=== PATIENT | male | born 1940 | race Caucasian/White ===

== ENCOUNTER 2017-05-02 09:58 | Inpatient (IN) | payer MEDICARE, MEDICAID ==
[~2017-05-02] VITALS: Ht 175.3 cm; Wt 45.5 kg
[~2017-05-02 09:58] MED LIST: /THIA10TA OR; /TIOT18INH INH; ACET1TAB17 PO; ACET65TA OR; ADV250INH INH; ALBU83IN INH; AMBI5TAB OR; ASPI325T OR; ATIV0.5T IV; CEFT2ADD IV; CELE20TA PO; COLA100C2 OR; DOCU10CA PO; FERR1TAB8 PO; FLEEENE4 PR; FOLI1TAB OR; HEPARIN LOCK FLUSH IV; LEVA750T7 PO; LOPR50TA OR; MAGN500T2 OR; MILKSUS OR; MORPHINE SULFATE IV; NEUTSOL PO; NICO21PAT TD; No Historical Meds; PRED10TA PO; PROAAER10 INH; SODIUM CL 0.9% IV; SPIR1CAP INH; TUMS500C OR; Theragran PO; XOPE1.252 IN
[2017-05-02] MEDS ORDERED: NS 1,000 ML IV SCH (10:11)
[2017-05-02] MEDS ORDERED: SYMB80INH INH (10:12)
[2017-05-02 10:44] LABS: BASO % 0.4 % (0.0-1.0); EOS % 0.4 % (0.0-3.0); IMMATURE GRANULOCYTE % 0.5 % (0-0); LYMPH % 9.5 % (24.0-44.0); MEAN CORPUSCULAR HEMOGLOBIN 20.1 pg (27.0-33.0); MONO # 1.2 10^3/uL (0.0-0.8); MONO % 11.8 % (0.0-5.0); NEUTROPHILS # 7.8 10^3/uL (1.8-7.7); NEUTROPHILS % 77.4 % (36.0-66.0); PLATELET COUNT, AUTOMATED 598 10^3/uL (150-450); RED CELL DISTRIBUTION WIDTH 19.9 % (11.5-14.5); WHITE BLOOD COUNT 10.1 10^3/uL (4.0-10.0)
[2017-05-02 10:45] LABS: VENOUS BASE EXCESS 2.8 (-2.0-2.0); VENOUS O2 SATURATION 41.8 % (60.0-80.0); VENOUS PARTIAL PRESSURE CO2 51.9 mmHg (38.0-50.0); VENOUS PARTIAL PRESSURE O2 26.6 mmHg (30.0-50.0); VENOUS STANDARD HCO3 26.1 MEQ/L; VENOUS TOTAL CO2 30.4 MEQ/L (24.0-28.0)
[2017-05-02 10:46] LABS: ADD MORPHOLOGY? YES; MEAN CORPUSCULAR VOLUME 71.7 fl (80.0-96.0)
[2017-05-02 10:57] LABS: INR 1.19
--- NOTE | 2017-05-02 10:59 | REP ---
PORTABLE CHEST, TWO VIEWS: HISTORY: Cough. COMPARISON: 04/21/2015 The lungs are hyperinflated. An increase in interstitial markings is present in the lungs. A 7.9 cm mass is present in the right upper lobe. The mass is increased in size compared to the previous study. The heart is normal in size. The pulmonary vasculature is normal in appearance. IMPRESSION: 1. COPD. 2. Right upper lobe mass Increased in size compared to the previous study. Signed by Ryan Burrows MD 05/02/2017 11:09 A
--- NOTE | 2017-05-02 11:11 | REP ---
Right lower extremity deep vein duplex ultrasound: The deep veins demonstrate normal compression, normal Doppler color flow and normal Doppler waveforms with respiration augmentation at multiple levels. Impression: There is no right lower extremity deep vein thrombus. Signed by Yazan Pham MD 05/02/2017 11:02 A
[2017-05-02 11:17] LABS: ALBUMIN 1.7 GM/DL (3.2-5.2); ALBUMIN/GLOBULIN RATIO 0.23 (1.00-1.93); ALKALINE PHOSPHATASE 108 U/L (45-117); ALT/SGPT 22 U/L (12-78); ANION GAP 6 MEQ/L (8-16); AST/SGOT 14 U/L (15-37); BILIRUBIN,DIRECT < 0.1 MG/DL (0.0-0.2); BILIRUBIN,TOTAL 0.3 MG/DL (0.2-1.0); BLOOD UREA NITROGEN 11 MG/DL (7-18); CALCIUM LEVEL 9.8 MG/DL (8.8-10.2); CARBON DIOXIDE LEVEL 30 MEQ/L (21-32); CHLORIDE LEVEL 95 MEQ/L (98-107); CREATININE FOR GFR 0.53 MG/DL (0.70-1.30); GLOMERULAR FILTRATION RATE > 60.0 (>42); GLUCOSE, FASTING 105 MG/DL (83-110); POTASSIUM SERUM 3.7 MEQ/L (3.5-5.1); SODIUM LEVEL 131 MEQ/L (136-145); TOTAL PROTEIN 9.1 GM/DL (6.4-8.2)
[2017-05-02 11:19] LABS: ANISOCYTOSIS 2+; MICROCYTOSIS 2+
[2017-05-02] MEDS ORDERED: ISOVUE-370 76% 100ML VIAL (Q9967) As Ordered ONE (12:35)
--- NOTE | 2017-05-02 13:20 | REP ---
CT pulmonary angiogram: With IV contrast. History: Cancer, shortness of breath, question pulmonary embolus. Comparison study: April 17, 2015. Contrast dose: 100 cc's of Isovue [address] technique: Helical scanning is acquired and overlapping 1.5 mm and contiguous 3 mm axial images are reformatted. In addition, a 3-D work station is deployed to generate thick slab maximum intensity projection images in sagittal and coronal imaging projections. CT pulmonary angiographic findings: There is good opacification of the pulmonary arterial tree. There is no CT evidence of pulmonary embolism. The thoracic aorta enhances homogeneously and is normal in caliber and contour. No aneurysm or dissection is seen. Left coronary artery vascular calcification is seen. The lungs are markedly hyperinflated. There is a large right suprahilar upper lobe mass with some peripheral consolidation. This mass-like opacity occludes the upper lobe bronchus and measures approximately 7 cm medial to lateral by 6.5 cm anterior to posterior by 7.5 cm cranial to caudal. Above the lesion there is some inspissated endobronchial secretions and some apical pleuroparenchymal fibrosis. Advanced emphysematous changes are seen throughout the lungs bilaterally. On the left in the upper lobe there is chronic fibroatelectatic change. There is a cavity in the left lung apex. This contains a nearly spherical slightly irregular density within the otherwise air-filled cavity. The density measures 1.5 cm in diameter. Possibility of a fungus ball cannot be excluded. There are scattered subpleural fibrotic densities in the lower lobes bilaterally, left more so than right. No other pulmonary mass lesion is seen. No adrenal lesion is observed. Bone window settings show no bony destructive lesion. Impression: 1. No CT evidence of pulmonary embolus. 2. 7.5 cm right suprahilar and upper lobe mass lesion likely bronchogenic malignancy. Right superior hilar adenopathy suspected. Obstruction of the right upper lobe bronchus. 3. 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 4. Advanced COPD with scattered fibronodular changes. Signed by Bienvenido Vegas MD 05/02/2017 05:10 P
--- NOTE | 2017-05-02 13:53 | REP ---
CT abdomen pelvis with IV but without oral contrast: History: Shortness of breath question pulmonary embolus. History of cancer. CT findings: There is mild fatty infiltration of the liver. No definite liver mass is seen. The patient is extremely thin and there is very little intra-abdominal or extra-abdominal fat. The kidneys enhance symmetrically and are morphologically intact. The right adrenal gland is normal. The left adrenal gland is somewhat enlarged but unchanged from the [address] study consistent with an adenoma. No pancreatic mass lesion is observed. No retroperitoneal mass or adenopathy is observed. Heavy atherosclerotic irregularity and calcification are seen along the abdominal aorta and its branches. No aneurysm is seen. A fecal impaction pattern is seen with marked dilation of the formed stool filled rectum. This fills the pelvis, 9.8 cm in transverse dimension. No small bowel dilation is seen. No abdominal wall defect or bony destructive lesion is appreciated. Impression: 1. Stable enlargement left adrenal gland consistent with benign adenoma. No evidence of intra-abdominal metastatic disease. 2. Fecal impaction constipation pattern. 3. No other acute intra-abdominal finding. Signed by Bienvenido Vegas MD 05/02/2017 05:11 P
[2017-05-02] MEDS ORDERED: TYLE325T5 PO (14:16)
[2017-05-02] MEDS ORDERED: MORP15TA2 PO (14:16)
[2017-05-02] MEDS ORDERED: ACETAMINOPHEN TAB 650MG DOSE (2X325MG) PO PRN (14:30)
[2017-05-02] MEDS ORDERED: IPRATROPIUM 0.5MG/ALBUTEROL 2.5MG INH SOL UD 3ML (DUONEB)(J7620) NEB PRN (14:45)
--- NOTE | 2017-05-02 14:51 | HPEPDOC ---
General Date of Admission May 02, 2017 at 14:20 Chief Complaint The patient is a 76-year-old male Presented to the ER with complaints of shortness of breath for >3 weeks. History of Present Illness Patient is a 76 year old male who is homeless and [facility]. He has a PMHx of Lung CA (Dx 2.5 years ago, refused biopsy / chemotherapy and radiation), COPD and Hx of GI bleed who presented to the ER with complaints of shortness of breath. He notes that he is always short of breath and has periods where it has been better without intervention. He ntoes that over 3 weeks his breathing has worsened. He also notes that he has a productive cough and at times has coughed up brownish colored sputum. He denies any fever or chills outside the hospital. He denies chest pain or palpitations. He notes that he gets constipated occasionally, but he denies any abdominal pain , nausea or vomiting. Denies dysuria. He also notes a weight loss of >50 lbs in 3 months. Home Medications Scheduled Albuterol Sulfate (Albuterol Sulfate) 2.5 Mg/3 Ml Nebu, 2.5 MG INH QID, ( Reported) Budesonide/Formoterol (Symbicort 80-4.5 Mcg/Act) 60 Puff/Inhaler Aers, 2 PUFF INH BID, (Reported) Morphine Sulfate (Morphine Sulfate) 15 Mg Tab, 15 MG PO TID, (Reported) Scheduled PRN Acetaminophen (Tylenol) 325 Mg Tab, 325 MG PO Q4H PRN for PAIN, (Reported) Allergies Coded Allergies: Vancomycin (Verified Allergy, Intermediate, HIVES, 10/20/12) Past Medical History Medical History Lung CA (Dx 2.5 years ago, refused biopsy / chemotherapy and radiation), COPD and Hx of GI bleed Surgical History None reported Family History - Non-contributory given advanced age Social History - Denies the use of alcohol or illicit drugs; Smoker since life at >1 PPD - Denies recent travel or sick contacts - [facility] - Occupation; unemployed Review of Symptoms Other systems Negative otherwise stated in HPI Vital Signs - Vitals: BP 104/59, HR 90, RR 22, Sat 91%RA, Temp 97.9F - General: Lying in bed, No acute distress, Speaking in full sentences, AAOx3, Appears cachectic - HEENT: NC, AT, PERRLA, EOMI - CVS: RRR, +S1S2 - Lungs: Diminished lung sounds bilaterally, wheezing appreciated at bilateral lung russo - Abdomen: Soft, Non-distended, Non-tender - Extremities: 2+ pitting edema bilaterally, No calf tenderness - Neuro: No focal motor or sensory deficit - Skin: No visible rashes Laboratory Data Labs 24H Laboratory Tests 2 05/02/17 10:31: Immature Granulocyte % (Auto) 0.5H, White Blood Count 10.1H, Red Blood Count 3.64L, Hemoglobin 7.3L, Hematocrit 26.1L, Mean Corpuscular Volume 71.7L, Mean Corpuscular Hemoglobin 20.1L, Mean Corpuscular Hemoglobin Concent 28.0L, Red Cell Distribution Width 19.9H, Platelet Count 598H, Neutrophils (%) (Auto) 77.4H , Lymphocytes (%) (Auto) 9.5L, Monocytes (%) (Auto) 11.8H, Eosinophils (%) (Auto ) 0.4, Basophils (%) (Auto) 0.4, Neutrophils # (Auto) 7.8H, Lymphocytes # (Auto ) 1.0L, Monocytes # (Auto) 1.2H, Eosinophils # (Auto) 0.0, Basophils # (Auto) 0.0, Immature Granulocyte # (Auto) 0.1H, Nucleated Red Blood Cells % (auto) 0.0 , Platelet Estimate INCREASED, Anisocytosis 2+, Microcytosis 2+, Prothrombin Time 15.3H, Prothromb Time International Ratio 1.19, Blood Gas Bicarbonate Standard 26.1, Venous Blood pH 7.362, Venous Blood Partial Pressure CO2 51.9H, Venous Blood Partial Pressure O2 26.6L, Venous Blood Total Carbon Dioxide 30.4H , Venous Blood HCO3 28.8H, Venous Blood Oxygen Saturation 41.8L, Venous Blood Base Excess 2.8H, Anion Gap 6L, Glomerular Filtration Rate > 60.0, Lactic Acid Level 1.7, Calcium Level 9.8, Aspartate Amino Transf (AST/SGOT) 14L, Alanine Aminotransferase (ALT/SGPT) 22, Alkaline Phosphatase 108, Total Bilirubin 0.3, Direct Bilirubin < 0.1, Total Creatine Kinase 27L, Creatine Kinase MB 1.6, Creatine Kinase MB Relative Index 5.92H, Troponin I < 0.02, Total Protein 9.1H, Albumin 1.7L, Albumin/Globulin Ratio 0.23L, Thyroid Stimulating Hormone (TSH) 1.810 05/02/17 12:34: Urine Appearance HAZY, Urine Color YELLOW, Urine pH 6.0, Urine Specific [place] 1.010, Urine Protein NEGATIVE, Urine Glucose (UA) NEGATIVE, Urine Ketones NEGATIVE, Urine Urobilinogen 4.0H, Urine Bilirubin NEGATIVE, Urine Leukocyte Esterase NEGATIVE, Urine Blood NEGATIVE, Urine Nitrite NEGATIVE, Urine WBC (Auto ) 2, Urine RBC (Auto) 3, Urine Hyaline Casts (Auto) 0, Urine Bacteria (Auto) NEGATIVE, Urine Squamous Epithelial Cells 0, Urine Amorphous Sediment SMALLH, Urine Mucus (Auto) SMALL, Urine Sperm (Auto) CBC/BMP Laboratory Tests 05/02/17 10:31 Red Blood Count 3.64 L, Mean Corpuscular Volume 71.7 L, Mean Corpuscular Hemoglobin 20.1 L, Mean Corpuscular Hemoglobin Concent 28.0 L, Red Cell Distribution Width 19.9 H, Neutrophils (%) (Auto) 77.4 H, Lymphocytes (%) (Auto ) 9.5 L, Monocytes (%) (Auto) 11.8 H, Eosinophils (%) (Auto) 0.4, Basophils (%) (Auto) 0.4, Neutrophils # (Auto) 7.8 H, Lymphocytes # (Auto) 1.0 L, Monocytes # (Auto) 1.2 H, Eosinophils # (Auto) 0.0, Basophils # (Auto) 0.0 Microbiology Microbiology 05/02/17 Blood Culture, Received Pending 05/02/17 Blood Culture, Received Pending Plan / VTE VTE Prophylaxis Ordered?: Yes Plan Plan Shortness of breath - possibly 2/2 multifactorial etiology, 2/2 acute COPD exacerbation, possibly 2/2 symptomatic anemia, possibly 2/2 lung cancer, possibly 2/2 congestive heart failure - Presented with worsening shortness of breath over 3 weeks, associated with productive cough - Physical with wheezing at bilateral lung russo and LE edema - Labs reveal anemia at 7.3 (Microcytic) - ABG reveals mild pCO2 retention, but no change in PH - Patient is DNR / DNI and does not want intubation - CTA 05/02: No pulmonary embolism, 7.5 cm R suprahilar and upper lobe mass lesion (likely bronchogenic malignancy), obstruction in R upper lobe bronchus, chronic fibroatelectasis in JOSEE with possible fungus ball in cavitary lesion at apex on left, advanced COPD - Patient is refusing bronchoscopy - Will consult Dr. Escamilla - Will start Solumedrol, Duoneb and Transfuse 2 units PRBC Microcytic anemia / Symptomatic anemia - Hg of 7.3 - Baseline of 10 from 11/2015 - Will check iron panel, B12, folate, and reticulocyte count - Will transfuse 2 units of PRBC Mild leukocytosis - Patient notes a productive cough - No fevers - Differential appears mostly neutrophil predominant - UA negative - CXR without acute infiltrate; CTA with possible fibroatelectasis in JOSEE with possible fungus ball in apex - Will check blood cultures and sputum cultures - Will discuss with Dr. Escamilla Thrombocytosis likely reactive, possibly 2/2 iron deficiency anemia - will monitor for now Likely lung malignancy - Dx 2.5 years ago - Patient had refused biopsy at that time and did not want chemotherapy or radiation - Again patient has refused bronchoscopy COPD - see above Hx of GI bleed - Will check stool guiac Gastrointestinal prophylaxis - Will start Protonix DVT prophylaxis - Will start SCDs SUZANNE HOWELL MD May 02, 2017 14:51
[2017-05-02] MEDS ORDERED: MIRALAX *UNIT DOSE* 17GM PACKET PO PRN (15:00)
[2017-05-02] MEDS: PANTOPRAZOLE 40MG INJ (PROTONIX) (C9113) IV SCH (15:06)
[2017-05-02] MEDS: methylPREDNISolone INJ 125 MG/2 ML VIAL (J2930) IV SCH ×2 (15:06→22:57)
[2017-05-02] MEDS ORDERED: FLEET OIL RETENTION ENEMA PR ONE (15:15)
[2017-05-02 15:19] LABS: RETIC HEMOGLOBIN EQUIVALENT 21.1 pg (24-36); RETICULOCYTE % 2.8 % (0.5-1.5)
[2017-05-02 16:04] LABS: PERCENT SATURATION 8.1 % (19.7-50.0)
[2017-05-02 16:07] LABS: FOLATE 7.6 NG/ML (>5.4)
[2017-05-02] MEDS: MORPHINE 30 MG TAB **MSIR PO SCH ×2 (18:39→21:00)
[2017-05-02 18:57] LABS: MEAN CORPUSCULAR HEMOGLOBIN 21.4 pg (27.0-33.0); MEAN CORPUSCULAR HGB CONC 29.2 g/dl (32.0-36.5); PLATELET COUNT, AUTOMATED 551 10^3/uL (150-450); WHITE BLOOD COUNT 8.3 10^3/uL (4.0-10.0)
[2017-05-02 19:05] LABS: ADD MANUAL DIFFER YES; DIFF SLIDE NUMBER 314; MEAN CORPUSCULAR VOLUME 73.4 fl (80.0-96.0); RED CELL DISTRIBUTION WIDTH 21.8 % (11.5-14.5)
[2017-05-02 19:40] LABS: ANISOCYTOSIS 2+; HYPOCHROMASIA 1+; MICROCYTOSIS 2+; POLYCHROMASIA 1+
[2017-05-02] MEDS: IPRATROPIUM 0.5MG/ALBUTEROL 2.5MG INH SOL UD 3ML (DUONEB)(J7620) NEB SCH (20:00)
[2017-05-02] MEDS: SYMBICORT 80/4.5MCG INHALER 6GM INH SCH (20:14)
[2017-05-02] MEDS: SENOKOT S TAB PO SCH (21:00)
[2017-05-02 22:00] VITALS: BP 94/64
[2017-05-03] VITALS: BP 105/61
[2017-05-03] MEDS: IPRATROPIUM 0.5MG/ALBUTEROL 2.5MG INH SOL UD 3ML (DUONEB)(J7620) NEB SCH ×3 (03:05→13:20)
[2017-05-03 04:00] VITALS: BP 107/70
[2017-05-03 06:07] LABS: IMMATURE GRANULOCYTE % 0.3 % (0-0); LYMPH # 0.5 10^3/uL (1.5-4.5); LYMPH % 7.5 % (24.0-44.0); MEAN CORPUSCULAR HGB CONC 29.6 g/dl (32.0-36.5); MONO # 0.3 10^3/uL (0.0-0.8); MONO % 4.7 % (0.0-5.0); NEUTROPHILS # 5.6 10^3/uL (1.8-7.7); NEUTROPHILS % 87.5 % (36.0-66.0); PLATELET COUNT, AUTOMATED 499 10^3/uL (150-450); WHITE BLOOD COUNT 6.4 10^3/uL (4.0-10.0)
[2017-05-03 06:13] LABS: ADD MORPHOLOGY? YES; MEAN CORPUSCULAR VOLUME 74.1 fl (80.0-96.0); RED CELL DISTRIBUTION WIDTH 21.2 % (11.5-14.5)
[2017-05-03 06:15] LABS: ALBUMIN 1.4 GM/DL (3.2-5.2); ALBUMIN/GLOBULIN RATIO 0.22 (1.00-1.93); ALKALINE PHOSPHATASE 88 U/L (45-117); ALT/SGPT 14 U/L (12-78); ANION GAP 8 MEQ/L (8-16); AST/SGOT 13 U/L (15-37); BILIRUBIN,TOTAL 0.5 MG/DL (0.2-1.0); BLOOD UREA NITROGEN 11 MG/DL (7-18); CALCIUM LEVEL 9.2 MG/DL (8.8-10.2); CARBON DIOXIDE LEVEL 28 MEQ/L (21-32); CHLORIDE LEVEL 100 MEQ/L (98-107); GLOMERULAR FILTRATION RATE > 60.0 (>42); GLUCOSE, FASTING 122 MG/DL (83-110); MAGNESIUM LEVEL 2.4 MG/DL (1.8-2.4); POTASSIUM SERUM 3.9 MEQ/L (3.5-5.1); SODIUM LEVEL 136 MEQ/L (136-145); TOTAL PROTEIN 7.7 GM/DL (6.4-8.2)
[2017-05-03] MEDS: methylPREDNISolone INJ 125 MG/2 ML VIAL (J2930) IV SCH ×3 (06:53→22:26)
[2017-05-03 07:11] LABS: ANISOCYTOSIS 3+; HYPOCHROMASIA 2+; MICROCYTOSIS 2+
[2017-05-03 07:12] LABS: POLYCHROMASIA 1+; STOMATOCYTES 1+
[2017-05-03] MEDS: SYMBICORT 80/4.5MCG INHALER 6GM INH SCH ×2 (07:36→21:11)
--- NOTE | 2017-05-03 07:39 | ECGEPIP ---
Stationary ECG Study [facility] - ED Test Date: 2017-05-02 Pat Name: LEBRON PALOMINO Department: Room: - Gender: M [employer]: AF : 1940 Requested By: Cyndy Mobley Order Number: [id number] Reading MD: Cyndy Mobley Measurements Intervals [place] Rate: 85 P: 87 [place]: 128 QRS: 87 QRSD: 103 T: 83 QT: 359 QTc: 429 Interpretive Statements SINUS RHYTHM WITH MARKED SINUS ARRHYTHMIA NSTTW ABNORMALITY BASELINE ARTIFACT LIMITS INTERPRETATION Electronically Signed On 05-03-2017 7:38:47 EDT by Cyndy Mobley
--- NOTE | 2017-05-03 07:57 | IPNPDOC ---
Date Seen The patient was seen on 05/03/17. Progress Note SUBJECTIVE: Patient is a 76 yo male admitted last evening for acute blood loss anemia. Transfused 2units of PRBCs. Currently no complaints of CP, SOB, n/v/d. Denies abdominal pain, hematochezia or melena. OBJECTIVE PHYSICAL EXAMINATION: VITAL SIGNS: Please see below. GENERAL: NAD HEENT: PERRLA, throat clear, neck supple, no JVD CARDIOVASCULAR: RRR. RESPIRATORY: expiratory wheeze throughout all lung russo. ABDOMINAL: soft NT/ND, Normoactive bowelsounds, no rebound EXTREMITIES: 1-2+ edema no calf tenderness NEUROLOGICAL: CN II-XII grossly intact, no gross deficits PSYCHOLOGICAL: negative LABORATORY DATA: Please see below. MICROBIOLOGY: Please see below. Echocardiogram: PENDING. DVT prophylaxis ordered?: yes ASSESSMENT AND PLAN: This is a 76 yo male admitted for sob and symptomatic anemia. No issues reported overnight. PROBLEMS: 1. Shortness of breath - possibly 2/2 multifactorial etiology: (2/2 acute COPD exacerbation, possibly 2/2 symptomatic anemia, possibly 2/2 lung cancer, possibly 2/2 congestive heart failure) -Transfused 2 units PRBC last pm - CTA 05/02: No pulmonary embolism, 7.5 cm R suprahilar and upper lobe mass lesion (likely bronchogenic malignancy), obstruction in R upper lobe bronchus, chronic fibroatelectasis in JOSEE with possible fungus ball in cavitary lesion at apex on left, advanced COPD - Patient is refusing bronchoscopy - Consult Dr. Escamilla - Continue Solumedrol, Duoneb 2. Microcytic anemia / Symptomatic anemia - Hg 8.3- s/p transfused 2 units of PRBC - Baseline of 10 from 11/2015 - Will check iron panel, B12, folate, and reticulocyte count 3. Mild leukocytosis: resolved - Patient notes a productive cough - No fevers - Differential appears mostly neutrophil predominant - UA negative - CXR without acute infiltrate; CTA with possible fibroatelectasis in JOSEE with possible fungus ball in apex - Will check blood cultures and sputum cultures - Will discuss with Dr. Escamilla 4. Thrombocytosis likely reactive, possibly 2/2 iron deficiency anemia - will monitor for now 5. Likely lung malignancy - Dx 2.5 years ago - Patient had refused biopsy at that time and did not want chemotherapy or radiation - Again patient has refused bronchoscopy 6. COPD / hypoxia - see above 7. Hx of GI bleed - Will check stool guiac 8. Gastrointestinal prophylaxis - Will start Protonix 9. DVT prophylaxis - TEDS / SCDs VS, I&O, 24H, Fishbone Vital Signs/I&O Vital Signs Date Time Temp Pulse Resp B/P (MAP) Pulse Ox O2 Delivery O2 Flow Rate FiO2 05/03/17 04:00 99.1 94 20 107/70 (82) 93 Room Air Laboratory Data 24H LABS Laboratory Tests 2 05/02/17 10:31: Immature Granulocyte % (Auto) 0.5H, White Blood Count 10.1H, Red Blood Count 3.64L, Hemoglobin 7.3L, Hematocrit 26.1L, Mean Corpuscular Volume 71.7L, Mean Corpuscular Hemoglobin 20.1L, Mean Corpuscular Hemoglobin Concent 28.0L, Red Cell Distribution Width 19.9H, Platelet Count 598H, Neutrophils (%) (Auto) 77.4H , Lymphocytes (%) (Auto) 9.5L, Monocytes (%) (Auto) 11.8H, Eosinophils (%) (Auto ) 0.4, Basophils (%) (Auto) 0.4, Neutrophils # (Auto) 7.8H, Lymphocytes # (Auto ) 1.0L, Monocytes # (Auto) 1.2H, Eosinophils # (Auto) 0.0, Basophils # (Auto) 0.0, Immature Granulocyte # (Auto) 0.1H, Nucleated Red Blood Cells % (auto) 0.0 , Platelet Estimate INCREASED, Anisocytosis 2+, Microcytosis 2+, Prothrombin Time 15.3H, Prothromb Time International Ratio 1.19, Blood Gas Bicarbonate Standard 26.1, Venous Blood pH 7.362, Venous Blood Partial Pressure CO2 51.9H, Venous Blood Partial Pressure O2 26.6L, Venous Blood Total Carbon Dioxide 30.4H , Venous Blood HCO3 28.8H, Venous Blood Oxygen Saturation 41.8L, Venous Blood Base Excess 2.8H, Anion Gap 6L, Glomerular Filtration Rate > 60.0, Lactic Acid Level 1.7, Calcium Level 9.8, Aspartate Amino Transf (AST/SGOT) 14L, Alanine Aminotransferase (ALT/SGPT) 22, Alkaline Phosphatase 108, Total Bilirubin 0.3, Direct Bilirubin < 0.1, Total Creatine Kinase 27L, Creatine Kinase MB 1.6, Creatine Kinase MB Relative Index 5.92H, Troponin I < 0.02, Total Protein 9.1H, Albumin 1.7L, Albumin/Globulin Ratio 0.23L, Thyroid Stimulating Hormone (TSH) 1.810 05/02/17 12:34: Urine Appearance HAZY, Urine Color YELLOW, Urine pH 6.0, Urine Specific [place] 1.010, Urine Protein NEGATIVE, Urine Glucose (UA) NEGATIVE, Urine Ketones NEGATIVE, Urine Urobilinogen 4.0H, Urine Bilirubin NEGATIVE, Urine Leukocyte Esterase NEGATIVE, Urine Blood NEGATIVE, Urine Nitrite NEGATIVE, Urine WBC (Auto ) 2, Urine RBC (Auto) 3, Urine Hyaline Casts (Auto) 0, Urine Bacteria (Auto) NEGATIVE, Urine Squamous Epithelial Cells 0, Urine Amorphous Sediment SMALLH, Urine Mucus (Auto) SMALL, Urine Sperm (Auto) 05/02/17 15:07: Reticulocyte # (auto) 99.200H, Percent Reticulocyte Count 2.8H, Reticulocyte Hemoglobin Equivalent 21.1L, Iron Level 14L, Total Iron Binding Capacity 173L, Transferrin % Saturation 8.1L, Ferritin 40, [id number]-Type Natriuretic Peptide 659H, Vitamin B12 Level 1003H, Folate 7.6 05/02/17 18:46: Nucleated Red Blood Cells % (auto) 0.0, Platelet Estimate INCREASED, Anisocytosis 2+, Microcytosis 2+, Neutrophils 94H, Lymphocytes (Manual) 6L, Polychromasia 1+, Hypochromasia 1+, Macrocytosis 1+ 05/03/17 05:34: Immature Granulocyte % (Auto) 0.3H, White Blood Count 6.4, Red Blood Count 3.78L , Hemoglobin 8.3L, Hematocrit 28.0L, Mean Corpuscular Volume 74.1L, Mean Corpuscular Hemoglobin 22.0L, Mean Corpuscular Hemoglobin Concent 29.6L, Red Cell Distribution Width 21.2H, Platelet Count 499H, Neutrophils (%) (Auto) 87.5H , Lymphocytes (%) (Auto) 7.5L, Monocytes (%) (Auto) 4.7, Eosinophils (%) (Auto) 0.0, Basophils (%) (Auto) 0.0, Neutrophils # (Auto) 5.6, Lymphocytes # (Auto) 0.5L, Monocytes # (Auto) 0.3, Eosinophils # (Auto) 0.0, Basophils # (Auto) 0.0, Immature Granulocyte # (Auto) 0.0, Nucleated Red Blood Cells % (auto) 0.0, Platelet Estimate INCREASED, Polychromasia 1+, Hypochromasia 2+, Anisocytosis 3+ , Microcytosis 2+, Stomatocytes 1+, Anion Gap 8, Glomerular Filtration Rate > 60.0, Blood Urea Nitrogen 11, Creatinine 0.40L, Sodium Level 136, Potassium Level 3.9, Chloride Level 100, Carbon Dioxide Level 28, Calcium Level 9.2, Aspartate Amino Transf (AST/SGOT) 13L, Alanine Aminotransferase (ALT/SGPT) 14, Alkaline Phosphatase 88, Total Bilirubin 0.5#, Total Protein 7.7, Albumin 1.4L, Magnesium Level 2.4, Albumin/Globulin Ratio 0.22L CBC/BMP Laboratory Tests 05/02/17 10:31 Red Blood Count 3.64 L, Mean Corpuscular Volume 71.7 L, Mean Corpuscular Hemoglobin 20.1 L, Mean Corpuscular Hemoglobin Concent 28.0 L, Red Cell Distribution Width 19.9 H, Neutrophils (%) (Auto) 77.4 H, Lymphocytes (%) (Auto ) 9.5 L, Monocytes (%) (Auto) 11.8 H, Eosinophils (%) (Auto) 0.4, Basophils (%) (Auto) 0.4, Neutrophils # (Auto) 7.8 H, Lymphocytes # (Auto) 1.0 L, Monocytes # (Auto) 1.2 H, Eosinophils # (Auto) 0.0, Basophils # (Auto) 0.0 05/02/17 18:46 Red Blood Count 4.02 L, Mean Corpuscular Volume 73.4 L, Mean Corpuscular Hemoglobin 21.4 L, Mean Corpuscular Hemoglobin Concent 29.2 L, Red Cell Distribution Width 21.8 H 05/03/17 05:34 Red Blood Count 3.78 L, Mean Corpuscular Volume 74.1 L, Mean Corpuscular Hemoglobin 22.0 L, Mean Corpuscular Hemoglobin Concent 29.6 L, Red Cell Distribution Width 21.2 H, Neutrophils (%) (Auto) 87.5 H, Lymphocytes (%) (Auto ) 7.5 L, Monocytes (%) (Auto) 4.7, Eosinophils (%) (Auto) 0.0, Basophils (%) ( Auto) 0.0, Neutrophils # (Auto) 5.6, Lymphocytes # (Auto) 0.5 L, Monocytes # ( Auto) 0.3, Eosinophils # (Auto) 0.0, Basophils # (Auto) 0.0, Calcium Level 9.2, Aspartate Amino Transf (AST/SGOT) 13 L, Alanine Aminotransferase (ALT/SGPT) 14, Alkaline Phosphatase 88, Total Bilirubin 0.5 #, Total Protein 7.7, Albumin 1.4 L Microbiology Microbiology 05/02/17 Blood Culture, Received Pending 05/02/17 Blood Culture, Received Pending JESS WITT DO May 03, 2017 07:57
[2017-05-03 08:00] VITALS: BP 98/53
[2017-05-03] MEDS: SENOKOT S TAB PO SCH ×2 (09:18→21:37)
[2017-05-03] MEDS: MORPHINE 30 MG TAB **MSIR PO SCH ×3 (09:19→21:37)
[2017-05-03 12:00] VITALS: BP 102/58
[2017-05-03] MEDS: PANTOPRAZOLE 40MG INJ (PROTONIX) (C9113) IV SCH (15:59)
[2017-05-03 16:00] VITALS: BP 101/55
[2017-05-03 20:00] VITALS: BP 100/59
[2017-05-03] MEDS: BISACODYL 10 MG SUPP PR SCH (21:38)
[2017-05-03] MEDS: NICOTINE 21MG/24HR 1 EA TRANSDERMAL TD SCH (21:45)
[2017-05-04] VITALS: BP 102/55
[2017-05-04] MEDS: IPRATROPIUM 0.5MG/ALBUTEROL 2.5MG INH SOL UD 3ML (DUONEB)(J7620) NEB SCH ×4 (01:39→20:00)
[2017-05-04 04:00] VITALS: BP 100/52
[2017-05-04 04:44] LABS: IMMATURE GRANULOCYTE % 0.3 % (0-0); LYMPH # 0.4 10^3/uL (1.5-4.5); LYMPH % 4.1 % (24.0-44.0); MEAN CORPUSCULAR HEMOGLOBIN 22.1 pg (27.0-33.0); MEAN CORPUSCULAR HGB CONC 29.5 g/dl (32.0-36.5); MONO # 0.7 10^3/uL (0.0-0.8); MONO % 7.5 % (0.0-5.0); NEUTROPHILS # 7.7 10^3/uL (1.8-7.7); NEUTROPHILS % 88.1 % (36.0-66.0); PLATELET COUNT, AUTOMATED 468 10^3/uL (150-450); WHITE BLOOD COUNT 8.7 10^3/uL (4.0-10.0)
[2017-05-04 04:45] LABS: ADD MORPHOLOGY? YES; MEAN CORPUSCULAR VOLUME 74.9 fl (80.0-96.0)
[2017-05-04 05:02] LABS: ALBUMIN 1.4 GM/DL (3.2-5.2); ALBUMIN/GLOBULIN RATIO 0.24 (1.00-1.93); ALKALINE PHOSPHATASE 95 U/L (45-117); ALT/SGPT 12 U/L (12-78); ANION GAP 7 MEQ/L (8-16); AST/SGOT 9 U/L (15-37); BILIRUBIN,TOTAL 0.3 MG/DL (0.2-1.0); BLOOD UREA NITROGEN 18 MG/DL (7-18); CALCIUM LEVEL 9.1 MG/DL (8.8-10.2); CARBON DIOXIDE LEVEL 30 MEQ/L (21-32); CHLORIDE LEVEL 102 MEQ/L (98-107); CREATININE FOR GFR 0.41 MG/DL (0.70-1.30); GLOMERULAR FILTRATION RATE > 60.0 (>42); GLUCOSE, FASTING 156 MG/DL (83-110); MAGNESIUM LEVEL 2.3 MG/DL (1.8-2.4); POTASSIUM SERUM 3.4 MEQ/L (3.5-5.1); SODIUM LEVEL 139 MEQ/L (136-145); TOTAL PROTEIN 7.3 GM/DL (6.4-8.2)
[2017-05-04 05:47] LABS: MICROCYTOSIS 2+
[2017-05-04 05:48] LABS: ANISOCYTOSIS 1+; HYPOCHROMASIA 2+
[2017-05-04] MEDS ORDERED: POTASSIUM CHLORIDE 10 MEQ SR TABLET PO ONE (06:30)
[2017-05-04] MEDS: SYMBICORT 80/4.5MCG INHALER 6GM INH SCH (07:28)
[2017-05-04 08:00] VITALS: BP 88/51
[2017-05-04] MEDS: BISACODYL 10 MG SUPP PR SCH ×2 (09:24→21:00)
[2017-05-04] MEDS: methylPREDNISolone INJ 125 MG/2 ML VIAL (J2930) IV SCH ×3 (09:24→22:17)
[2017-05-04] MEDS: SENOKOT S TAB PO SCH ×2 (09:25→21:00)
[2017-05-04] MEDS: NICOTINE 21MG/24HR 1 EA TRANSDERMAL TD SCH (09:26)
[2017-05-04] MEDS: MORPHINE 30 MG TAB **MSIR PO SCH ×3 (09:45→22:16)
--- NOTE | 2017-05-04 10:53 | CR ---
DATE OF CONSULTATION: 05/04/2017 REASON FOR CONSULTATION: Abnormal chest CT. Mr. Pete is a 76-year-old male with presumed lung malignancy after having a finding of a right upper lobe mass in 2014 with contralateral hypermetabolic lesions on PET imaging. He presented to the hospital with increased shortness of breath over a 3-week period and was found to be anemic. He has a productive cough with brown phlegm. He has had a 50 pound weight loss in the past 3 months. There is concern of a mycetoma in the left upper lobe. However, the patient has been afebrile without any significant white count. He is lying in bed stating, "I just want to feel comfortable, however, if my doctors think I need a biopsy, I am just going to do it in order to satisfy them". He has previously refused biopsy back in 2014 despite multiple consultations with a roast master. He also refused further radiologic surveillance of the lesion. This is upon review of Dr. Balderas's records, both in the hospital and office. The patient himself states his biggest problem is breathing. He states his nebulizers are his life line. He does not perceive the same benefit from Symbicort. He states he is on morphine that was prescribed by his primary who sees him every 3 months. He states that he believes the morphine was originally prescribed for his lung cancer. He states however he has no lung pain. He states he has back pain and therefore has been using the morphine for this reason. He has had no night sweats. He has had difficulty swallowing. He is living in a fpc. He denies any known tuberculosis exposures. Currently, he is on reverse isolation until tuberculosis has been ruled out. He has had no lower extremity edema or calf pain. He has no history of thromboembolic disease. PAST MEDICAL HISTORY: 1. Suspected advanced lung cancer based on imaging. The patient has refused biopsy in the past 2 years ago. 2. Emphysema. Not staged at this point in time due to inability to obtain spirometry. 3. History of GI bleed. Reported, I do not see where this was confirmed. 4. History of MSSA pneumonia in 2010. HOME MEDICATIONS: Include albuterol nebulizer, Symbicort and morphine 15 mg p.o. t.i.d. MEDICATIONS HERE: Include Protonix, Solu-Medrol 60 mg IV, MiraLAX, Tylenol, Dulcolax, nicotine patch, Symbicort, DuoNebs, and morphine. ALLERGIES: VANCOMYCIN. FAMILY HISTORY: No known family history of lung cancer or lung disease. SOCIAL HISTORY: The patient lives in a homeless fpc, is unemployed. Denies the use of alcohol or illicit drugs. He has been a smoker for at least 54 years at a pack a day. REVIEW OF SYSTEMS: Constitutional: Positive for weight loss. No night sweats, fever or chills. HEENT: No change in vision. No epistaxis. He does have difficulty swallowing, but it does not appear to be in the oropharyngeal phase. He has multiple missing teeth. Pulmonary: As per HPI. No pleurisy. GI: No nausea, vomiting or diarrhea, but does have decreased appetite. No blood in stool. No change in bowel habits. : No burning or pain with urination. No hematuria or history of nephrolithiasis. Endocrine: No history of diabetes or thyroid disease. No hot or cold intolerance. No tremor. Psychiatric: No depression or anxiety. No suicidal ideation. Neurologic: No unilateral weakness and no tremor or seizure activity. No recent head trauma. Sleep: No difficulty with sleeping other than because of his cough. Allergy/Immunology: No known environmental allergies. No recurrent infections. PHYSICAL EXAMINATION: Temperature is 98.1, pulse of 82, respiratory rate is 17, blood pressure is 100/52, oxygen saturation is 91% on room air at rest. Ins and outs are 2120 in and 950 out. He is positive 1170. General: The patient is awake, alert, oriented times three, is able to converse well. Speech is clear, nontangential. He is able to have an intelligent conversation. HEENT: Sclerae clear and anicteric. Pupils equal and react to light. Mucous membranes are moist without lesions. Tongue is midline. Multiple missing teeth. Mallampati one. Neck: Supple. No tracheal deviation or mass. I do feel prominent submandibular glands, but I do not palpate any lymphadenopathy. Lymphs: No cervical, supraclavicular or axillary adenopathy. Cardiac: Regular S1, S2, without audible murmur, rub or gallop. No elevated jugular venous pulse (JVP). No peripheral edema. Pulmonary: Diffusely abnormal decreased breath sounds throughout all lung russo. There is better air entry surprisingly at the right base than there is on the left. There is diffuse rhonchi bilaterally with poor end-expiratory wheeze. There is a prolongation of expiratory phase. The chest is hyperexpanded with increased AP diameter. Abdomen is scaphoid, soft, nontender, with hyperactive bowel sounds. No mass or hepatosplenomegaly. No groin adenopathy. Extremities: No cyanosis, clubbing or edema. Hands are stained from nicotine. Musculoskeletal: Significant muscle wasting. The patient appears very cachectic. Neurologic: No unilateral weakness. No tremor. LABORATORY EVALUATION: Shows a sodium of 139, potassium 3.4, chloride 102, bicarb of 38, BUN of 18, creatinine 0.41 with a glucose of 156, albumin is 1.4. Blood cultures no show no growth times two. White blood cell count is 8.7, hemoglobin is 8.2, hematocrit of 27.8 and platelet count is 468. CT angio shows multiple abnormalities from 05/02/2017. There is a 7.5 x 7.0 cm mass in the right upper lobe obstructing the right upper lobe. There is a left upper lobe cavitary lesion with what appears to be a mycetoma. The left upper lung russo also show fibroid atelectatic change was significant scarring. There is also a pleural based lesion in the lingula that is spiculated. There is advanced emphysema. PET imaging was performed back on 05/05/2015. The right upper lobe lesion was hypermetabolic at that time. There are multiple other contralateral lesions on the left that were mildly hypermetabolic. IMPRESSION: 1. Abnormal chest CT from advanced malignancy. Although consideration of biopsy was requested by the primary team, I believe biopsy is all risk without any potential benefit. The patient is not a surgical candidate by any means and when evaluated in 2014 was deemed not to be a surgical candidate. The lesion is too large and he his lung function is such that he would not be able to tolerate radiation. He is severely malnourished with an albumin of 1 and therefore I do not believe he would be able to withstand any therapy. He states he would not want any therapy anyway. He states he just wants to be kept comfortable and maybe breathe a little bit better. After I discussed the risks and benefits of the biopsy, the patient and I have decided together that a biopsy would not be in his best interest. The patient does not want to pursue biopsy at this point in time. I agree with sending sputum for cytology. However, again I do not believe this will change his treatment. 2. Anemia with probable hemoptysis. I believe this is blood loss and is likely from his lung cancer. He has brown sputum which likely represents old blood. He would be at high risk for a significant bleed from bronchoscopy. 3. Mycetoma unlikely to be causing significant pathology in the face of his advanced malignancy. 4. Chronic protein malnourished. Would be careful with fluid administration as he is already a liter positive. He will likely not retain fluid intravascularly. Would recommend protein supplementation. 5. Emphysema. I have converted his Symbicort to Brovana and budesonide as he finds more benefit from nebulized medication. 6. My ultimate recommendation is that for palliative care. The patient states he wants to be kept comfortable and although he states he does not want to he has been preparing for it. He was told in the past that this was most likely a malignancy and that he would likely pass from malignancy within a few years. He has therefore prepared his life to pass away. I believe we should respect the patient's wishes and not put him through a procedure that has more risk than benefit.
--- NOTE | 2017-05-04 11:35 | IPNPDOC ---
Date Seen The patient was seen on 05/04/17. Progress Note SUBJECTIVE: Patient is 76yo male seen bedside. Denies overnight issues, resting comfortably. Continues with nonproductive cough, no hemoptysis. Denies: CP, N/V/ D. Had issue yesterday with fecal impaction treated by medical education specialist disimpaction. States he feels much relieved today. No issues with voiding. Tolerating PO intake but we added supplemental ensure with meals due to severe cachexia. OBJECTIVE PHYSICAL EXAMINATION: VITAL SIGNS: Please see below. GENERAL: NAD, A&OX3 HEENT: PERRLA, throat clear, neck supple, no adenopathy, no JVD CARDIOVASCULAR: RRR. RESPIRATORY: occasional wheeze bilaterally, diminished breath sounds in bases. ABDOMINAL: soft, NT/ND, normoactive bowel sounds, no rebound EXTREMITIES: no edema, no calf tenderness NEUROLOGICAL: CN II-XII Grossly intact without deficits PSYCHOLOGICAL: negative LABORATORY DATA: Please see below. MICROBIOLOGY: Please see below. DVT prophylaxis ordered?: yes ASSESSMENT AND PLAN: This is a 76 yo male with lung mass on right and ? LLL lesion (differential include mycetoma vs TB) QUANTIFERON GOLD and sputum cultures and cytology pending. PROBLEMS: 1. Shortness of breath - possibly 2/2 multifactorial etiology: (2/2 acute COPD exacerbation, possibly 2/2 symptomatic anemia, possibly 2/2 lung cancer, possibly 2/2 congestive heart failure) -Transfused 2 units PRBC last pm - CTA 05/02: No pulmonary embolism, 7.5 cm R suprahilar and upper lobe mass lesion (likely bronchogenic malignancy), obstruction in R upper lobe bronchus, chronic fibroatelectasis in JO[place] with possible mycetoma in cavitary lesion at apex on left, advanced COPD - Patient is refusing bronchoscopy in past but may be open to further w/u he says today. Sputum for cytology and culture are pending. - Consulted Dr. Escamilla - Consulted Dr. Chanel - Continue Solumedrol, Duoneb 2. Microcytic anemia / Symptomatic anemia -stable h/h, does appear to have some degree of iron deficiency / will start supplementation. 3. Hypokalemia: supplement and repeat labs in morning 4. Mild leukocytosis: resolved - Will check blood cultures and sputum cultures - Will discuss with Dr. Escamilla 5. Thrombocytosis likely reactive, possibly 2/2 iron deficiency anemia - will monitor for now 6. Likely lung malignancy - Dx 2.5 years ago and mass looks as if it has more than doubled in the mean time. -My concern is that it may involve vascular structures in the chest which increases chance that he may develop ranjith hemoptysis leading to an uncomfortable . - Patient had refused biopsy at that time and did not want chemotherapy or radiation - Again patient has refused bronchoscopy in past, but considering w/u at this time. - Appreciate any insight from pulmonology. 7. COPD / hypoxia - see above 8. Hx of GI bleed - Will check stool guiac 9. Gastrointestinal prophylaxis - Will start Protonix 10. Severe protein calorie malnutrition: albumin 1.4 and BMI 14.8 - consult dietary, supplement with meals ensure. 11. DVT prophylaxis - TEDS / SCDs DISPOSITION: unclear until further eval by pulmonolgy and ID.. VS, I&O, 24H, Fishbone Vital Signs/I&O Vital Signs Date Time Temp Pulse Resp B/P (MAP) Pulse Ox O2 Delivery O2 Flow Rate FiO2 05/04/17 08:15 Room Air 05/04/17 08:00 18 05/04/17 04:00 98.1 82 100/52 (68) 91 I&O- Last 24 Hours up to 6 AM 05/05/17 06:00 Output Total 300 ml Balance -300 ml Laboratory Data 24H LABS Laboratory Tests 2 05/04/17 03:49: Immature Granulocyte % (Auto) 0.3H, White Blood Count 8.7, Red Blood Count 3.71L , Hemoglobin 8.2L, Hematocrit 27.8L, Mean Corpuscular Volume 74.9L, Mean Corpuscular Hemoglobin 22.1L, Mean Corpuscular Hemoglobin Concent 29.5L, Red Cell Distribution Width 22.0H, Platelet Count 468H, Neutrophils (%) (Auto) 88.1H , Lymphocytes (%) (Auto) 4.1L, Monocytes (%) (Auto) 7.5H, Eosinophils (%) (Auto ) 0.0, Basophils (%) (Auto) 0.0, Neutrophils # (Auto) 7.7, Lymphocytes # (Auto) 0.4L, Monocytes # (Auto) 0.7, Eosinophils # (Auto) 0.0, Basophils # (Auto) 0.0, Immature Granulocyte # (Auto) 0.0, Nucleated Red Blood Cells % (auto) 0.0, Platelet Estimate INCREASED, Hypochromasia 2+, Anisocytosis 1+, Microcytosis 2+ , Anion Gap 7L, Glomerular Filtration Rate > 60.0, Blood Urea Nitrogen 18#, Creatinine 0.41L, Sodium Level 139, Potassium Level 3.4L, Chloride Level 102, Carbon Dioxide Level 30, Calcium Level 9.1, Aspartate Amino Transf (AST/SGOT) 9L , Alanine Aminotransferase (ALT/SGPT) 12, Alkaline Phosphatase 95, Total Bilirubin 0.3, Total Protein 7.3, Albumin 1.4L, Magnesium Level 2.3, Albumin/ Globulin Ratio 0.24L CBC/BMP Laboratory Tests 05/04/17 03:49 Red Blood Count 3.71 L, Mean Corpuscular Volume 74.9 L, Mean Corpuscular Hemoglobin 22.1 L, Mean Corpuscular Hemoglobin Concent 29.5 L, Red Cell Distribution Width 22.0 H, Neutrophils (%) (Auto) 88.1 H, Lymphocytes (%) (Auto ) 4.1 L, Monocytes (%) (Auto) 7.5 H, Eosinophils (%) (Auto) 0.0, Basophils (%) ( Auto) 0.0, Neutrophils # (Auto) 7.7, Lymphocytes # (Auto) 0.4 L, Monocytes # ( Auto) 0.7, Eosinophils # (Auto) 0.0, Basophils # (Auto) 0.0, Calcium Level 9.1, Aspartate Amino Transf (AST/SGOT) 9 L, Alanine Aminotransferase (ALT/SGPT) 12, Alkaline Phosphatase 95, Total Bilirubin 0.3, Total Protein 7.3, Albumin 1.4 L Microbiology Microbiology 05/02/17 Blood Culture - Preliminary, Resulted No growth after 24 hours . All specim... 05/02/17 Blood Culture - Preliminary, Resulted No growth after 24 hours . All specim... 05/03/17 Acid Fast Stain, Received Pending 05/03/17 Mycobacterial Culture, Received Pending 05/03/17 Fungal Smear, Received Pending 05/03/17 Fungal Culture, Received Pending 05/03/17 Gram Stain - Final, Resulted 05/03/17 Sputum Culture, Resulted Pending JESS WITT DO May 04, 2017 10:36
[2017-05-04 12:00] VITALS: BP 90/54
[2017-05-04] MEDS ORDERED: LORazepam 2 MG/ML VIAL (J2060) IV PRN (15:15)
[2017-05-04] MEDS ORDERED: ONDANSETRON 4 MG ORAL DISINTEGRATING TAB (S0181) PO PRN (15:15)
[2017-05-04] MEDS ORDERED: HYOSCYAMINE SULFATE 0.125 MG SUBL TABLET PO PRN (15:15)
[2017-05-04] MEDS ORDERED: MORPHINE 2 MG/ML 1ML SYRINGE IV PRN (15:15)
[2017-05-04] MEDS: PANTOPRAZOLE 40MG INJ (PROTONIX) (C9113) IV SCH (15:55)
[2017-05-04] MEDS: BUDESONIDE 0.5 MG/2 ML INHALATION SUSPENSION INH SCH (20:26)
[2017-05-04] MEDS: FORMOTEROL FUMARATE 20 MCG/2 ML INHALATION SOLUTION (PERFOROMIST) INH SCH (20:26)
--- NOTE | 2017-05-04 22:55 | CR ---
DATE OF CONSULTATION: 05/03/2017 REASON FOR CONSULTATION: Asked to consult for evaluation of abnormal CT scan. Mr. Shelton is a 76-year-old gentleman who has a history of chronic obstructive pulmonary disease (COPD) lung mass Right side that was found about two and a half years ago, the patient had refused to have bronchoscopy and that was located in his right lung. The patient has a history of Staphylococcus aureus sepsis with septic emboli in 2010, for which I took care of him. The patient had noticed increasing shortness of breath and productive cough. The patient had hemoptysis only once a month. He denied having any fever or chills, chest pain or palpitations. He came to the emergency room because of worsening shortness of breath. He is also very concerned because he was constipated. He could not eat, would get very easily bloated, but denied any abdominal pain, nausea or vomiting. The patient takes morphine regularly because of chronic back pain. He has had a weight loss of over 50 pounds in three months. ALLERGIES: VANCOMYCIN. MEDICATIONS - Dulcolax 10 mg per rectum twice a day - nicotine patch daily 21 mg - Senokot-S one tablet by mouth twice a day - Symbicort two puffs inhaled twice a day - albuterol/Atrovent nebulizations every six as needed - morphine 15 mg by mouth three times a day - Protonix 40 mg intravenous (IV) every 24 hours - Solu-Medrol 60 mg IV every eight hours - MiraLax one packet daily - Tylenol 650 mg by mouth every four as needed for fever. PAST MEDICAL HISTORY: 1. Significant for COPD. 2. Staphylococcus aureus sepsis with septic emboli in 2010. 3. Lung cancer without a biopsy, refused workup in 2014. 4. History of gastrointestinal (GI) bleed. PAST SURGICAL HISTORY: None. FAMILY HISTORY: None. SOCIAL HISTORY: He lives at [facility] in a homeless fpc. He has two children who do not check on him. He quit smoking for about seven months until recently. He relapsed with smoking. He does not drink or use drugs. REVIEW OF SYSTEMS: He has no nausea or vomiting. He has been constipated. He has no fever or chills. He has shortness of breath, chronic cough, hemoptysis, and significant weight loss. PHYSICAL EXAMINATION: GENERAL: On physical exam, emaciated gentleman in no acute distress. VITAL SIGNS: Temperature is 98.7, pulse 85, respirations 16, blood pressure 101/55, O2 saturation 93% on room air. Temperature maximum (T-max) was 99.1 today. HEENT: Oropharynx is clear with no thrush. Poor dentition. HEART: Normal S1, S2, distant. LUNGS: Diminished breath sounds bilaterally with poor air entry. ABDOMEN: Emaciated soft, nontender. BACK: Severe kyphoscoliosis, no costovertebral angle tenderness. EXTREMITIES: No clubbing, cyanosis or edema with very long nails and poor hygiene. NEUROLOGIC: Exam normal. LABORATORY DATA: White count is 10.1 on admission, currently 6.4, hemoglobin 8.3, hematocrit 28, platelets 499, 87% neutrophils, 7% lymphocytes, 4% monocytes. Reticulocyte count was 2.8%. Sodium 136, potassium 3.9, chloride 100, bicarb 28, BUN 11, creatinine 0.4, glucose 122, calcium 9.2, magnesium 2.4, AST 13, ALT 14, alkaline phosphatase 88. BNP 659. Albumin 1.4. Vitamin B12 1003, folate 7.6. TSH 1.81. MICROBIOLOGY: Blood cultures two sets were drawn are negative. Gram stain sputum culture pending. AFB smear, fungal smear and culture pending. Cytology on sputum is pending. IMAGING: CT chest shows no evidence of pulmonary embolism. There is a 7.5 cm right suprahilar and upper lobe mass, likely bronchogenic malignancy, with right superior hilar adenopathy with obstruction of the right upper lobe bronchus. Left upper lobe chronic fibro atelectasis with possibility of a fungus ball in a cavitary lesion at the apex of the left. Advanced COPD with scattered fibronodular changes. CT of the abdomen and pelvis shows stable enlargement of left adrenal gland consistent with benign adenoma and fecal impaction constipation pattern. IMPRESSION: This is a 76-year-old gentleman with lung cancer of the right lung measuring about 7.5 cm, a cavitary lesion in the left lung with what may be a fungus ball. The patient is admitted with worsening shortness of breath, probably multifactorial, especially anemia along with worsening malignancy, and possibility of infection. The patient also is constipated probably related to his narcotics. He takes a lot of morphine due to chronic back pain. He has been started on laxative. The patient is very concerned about his constipation. PLAN: The patient was having second thoughts about whether he wants to pursue a bronchoscopy to make a diagnosis of malignancy and rule out of fungus ball versus to be under hospice care. He had agreed on the bronchoscopy for now and therefore pulmonary will be consulted. Will send sputum for acid-fast bacillus (AFB) fungal smear and culture and cytology. He is probably going to be very poor candidate to have any intervention done. As far as constipation is related , he should be a candidate also for a colonoscopy but I am not sure if there is any benefit in doing that either. He has been given laxatives to counteract the side effects of the narcotics, and his narcotic dose has been reduced. Sputum AFB smear and culture needs to be sent three different specimens, QuantiFERON TB Gold has been done and is pending. Case has been discussed with Dr. Amado Almeida. [facility] DIVISIONSteph
[2017-05-05] MEDS: IPRATROPIUM 0.5MG/ALBUTEROL 2.5MG INH SOL UD 3ML (DUONEB)(J7620) NEB SCH ×4 (01:41→20:00)
[2017-05-05 06:00] VITALS: BP 124/69
[2017-05-05] MEDS: methylPREDNISolone INJ 125 MG/2 ML VIAL (J2930) IV SCH ×3 (06:28→23:39)
[2017-05-05] MEDS: NICOTINE 21MG/24HR 1 EA TRANSDERMAL TD SCH (08:35)
[2017-05-05] MEDS: SENOKOT S TAB PO SCH ×2 (08:36→21:00)
[2017-05-05] MEDS: MORPHINE 30 MG TAB **MSIR PO SCH ×3 (08:36→21:47)
[2017-05-05] MEDS: BISACODYL 10 MG SUPP PR SCH ×2 (08:36→20:00)
[2017-05-05] MEDS: FERROUS GLUCONATE 324 MG TAB PO SCH (08:36)
[2017-05-05] MEDS: FORMOTEROL FUMARATE 20 MCG/2 ML INHALATION SOLUTION (PERFOROMIST) INH SCH ×2 (09:17→20:17)
[2017-05-05] MEDS: BUDESONIDE 0.5 MG/2 ML INHALATION SUSPENSION INH SCH ×2 (09:18→20:17)
[2017-05-05] MEDS: PANTOPRAZOLE 40MG INJ (PROTONIX) (C9113) IV SCH (16:19)
[2017-05-06] MEDS: IPRATROPIUM 0.5MG/ALBUTEROL 2.5MG INH SOL UD 3ML (DUONEB)(J7620) NEB SCH ×4 (01:12→20:00)
[2017-05-06] MEDS: methylPREDNISolone INJ 125 MG/2 ML VIAL (J2930) IV SCH (06:10)
[2017-05-06] MEDS: FORMOTEROL FUMARATE 20 MCG/2 ML INHALATION SOLUTION (PERFOROMIST) INH SCH ×2 (07:22→21:21)
[2017-05-06] MEDS: BUDESONIDE 0.5 MG/2 ML INHALATION SUSPENSION INH SCH ×2 (07:22→21:21)
[2017-05-06] MEDS: NICOTINE 21MG/24HR 1 EA TRANSDERMAL TD SCH (08:46)
[2017-05-06] MEDS: MORPHINE 30 MG TAB **MSIR PO SCH ×3 (08:47→20:48)
[2017-05-06] MEDS: FERROUS GLUCONATE 324 MG TAB PO SCH (08:47)
[2017-05-06] MEDS: BISACODYL 10 MG SUPP PR SCH ×2 (08:47→20:48)
[2017-05-06] MEDS: SENOKOT S TAB PO SCH ×2 (08:47→20:47)
--- NOTE | 2017-05-06 13:46 | IPN ---
DATE: 05/06/2017 ATTENDING PHYSICIAN: Dr. Almeida. I am rounding for the hospitalist today. The patient is on comfort measures only status. I went on to check on whether his end of life needs are being met. He is lying in bed watching television and feels that he is at his baseline. He says that he feels "pretty much like I usually do." Apparently hospice consult is pending. The patient lives at [facility], which is a residential community for recovering alcoholics down in the area. He has no family. PHYSICAL EXAMINATION: Alert and conversant. No recent vital signs. LUNGS: Decreased breath sounds but clear. HEART: Regular rhythm. ABDOMEN: Soft, nontender. No peripheral edema. He looks very comfortable. IMPRESSION: The patient is on comfort measures only status for end stage chronic obstructive pulmonary disease (COPD). He has a 7.5 cm right suprahilar and upper lobe mass that is possibly bronchogenic malignancy. He has obstruction of the right lobe bronchus. He also has a cavitary lesion, possible fungus ball in the apex on the left side with advanced COPD. Plan is for him to be discharged on hospice care. At this point, I am stopping anything that is intravenous. He is still getting IV Solu-Medrol and IV Protonix.
[2017-05-07] MEDS: IPRATROPIUM 0.5MG/ALBUTEROL 2.5MG INH SOL UD 3ML (DUONEB)(J7620) NEB SCH ×4 (00:58→20:00)
[2017-05-07] MEDS: BUDESONIDE 0.5 MG/2 ML INHALATION SUSPENSION INH SCH ×2 (07:45→20:17)
[2017-05-07] MEDS: FORMOTEROL FUMARATE 20 MCG/2 ML INHALATION SOLUTION (PERFOROMIST) INH SCH ×2 (07:45→20:17)
[2017-05-07] MEDS: BISACODYL 10 MG SUPP PR SCH ×2 (09:00→21:00)
[2017-05-07] MEDS: predniSONE 20 MG TAB PO SCH (09:49)
[2017-05-07] MEDS: SENOKOT S TAB PO SCH ×2 (09:49→22:02)
[2017-05-07] MEDS: MORPHINE 30 MG TAB **MSIR PO SCH ×3 (09:49→22:02)
[2017-05-07] MEDS: FERROUS GLUCONATE 324 MG TAB PO SCH (09:49)
[2017-05-07] MEDS: NICOTINE 21MG/24HR 1 EA TRANSDERMAL TD SCH (09:52)
--- NOTE | 2017-05-07 10:34 | IPN ---
DATE: 05/07/2017 Yoel is on comfort measures only (HOME DEPOT REP) status. He has a presumed malignancy in his right lung, possibly fungus ball in his left lung. He has severe chronic obstructive pulmonary disease (COPD). Per nursing staff, he is going to hospice house. Yesterday I put him on oral prednisone. He looks comfortable, resting comfortably. He is looking forward to going to hospice house, which, per the nursing staff, is planned in the next day or so. Dr. Medrano will be assuming his care tomorrow.
[2017-05-08] MEDS: IPRATROPIUM 0.5MG/ALBUTEROL 2.5MG INH SOL UD 3ML (DUONEB)(J7620) NEB SCH ×4 (01:08→20:00)
[2017-05-08] MEDS: BUDESONIDE 0.5 MG/2 ML INHALATION SUSPENSION INH SCH ×2 (08:30→20:43)
[2017-05-08] MEDS: FORMOTEROL FUMARATE 20 MCG/2 ML INHALATION SOLUTION (PERFOROMIST) INH SCH ×2 (08:30→20:43)
[2017-05-08] MEDS: BISACODYL 10 MG SUPP PR SCH (09:00)
[2017-05-08] MEDS: FERROUS GLUCONATE 324 MG TAB PO SCH (09:17)
[2017-05-08] MEDS: predniSONE 20 MG TAB PO SCH (09:18)
[2017-05-08] MEDS: SENOKOT S TAB PO SCH ×2 (09:18→20:16)
[2017-05-08] MEDS: MORPHINE 30 MG TAB **MSIR PO SCH ×3 (09:18→20:17)
[2017-05-08] MEDS: NICOTINE 21MG/24HR 1 EA TRANSDERMAL TD SCH (09:19)
--- NOTE | 2017-05-08 18:42 | IPN ---
DATE: 05/08/2017 Patient was seen and examined. Denies any chest pain, pressure, or discomfort. Denies a reported cough, denies any shortness of breath. Denies any fevers or chills. Patient is currently on comfort measure only. PHYSICAL EXAMINATION: GENERAL: Patient frail in no acute distress. HEENT: Normocephalic atraumatic. PULMONARY: Occasional expiratory wheeze. Diminished breath sound bilateral base. ABDOMEN: Soft, nontender, positive bowel sounds. EXTREMITIES: No edema bilateral lower extremities. ASSESSMENT AND PLAN: This is a 76-year-old male patient who is homeless with a past medical history of lung cancer diagnosed 2 1/2-years ago. Refused biopsy and chemo or radiation. Chronic obstructive pulmonary disease (COPD). History of GI bleed who presented to the emergency room with shortness of breath. PROBLEMS: 1. Shortness of breath multifactorial, possible secondary to acute COPD exacerbation versus symptomatic anemia versus lung cancer versus congestive heart failure. Transfused 2 units of packed red blood cells with improvement. CT angio showed no pulmonary embolism but shows a 7.5 cm wide suprahilar mass with upper lobe mass, likely malignancy, obstruction of right upper lobe rhonchus, chronic fibro atelectasis with right lower lobe possibly fungal ball in the cavitary lesion at the apex on the left. Advanced COPD, refused bronchoscopy. Currently comfort measure only. Continue Pulmicort nebulizer treatment, formoterol, morphine, nicotine patch. 2. Macrocystic anemia transfused. Patient is currently comfort measures only. 3. Hyperkalemia. Supplemented. Currently comfort measures only. 4. Leukocytosis, resolved. 5. Thrombocytosis, likely reactive. 6. Lung cancer, refused further workup or chemo. Currently comfort measure only waiting for Hospice. 7. COPD hypoxia. Oxygen supplementation. Currently comfort measures only. 8. History of GI bleed. 9. GERD. Continue PPI. 10. Severe protein calorie malnutrition. Dietary supplementation encouraged. Currently comfort measures only. 11. Deep vein thrombosis (DVT) prophylaxis, sequential compression device. DISPOSITION: Pending Hospice.
[2017-05-09] MEDS: IPRATROPIUM 0.5MG/ALBUTEROL 2.5MG INH SOL UD 3ML (DUONEB)(J7620) NEB SCH ×4 (01:47→19:48)
[2017-05-09] MEDS: FORMOTEROL FUMARATE 20 MCG/2 ML INHALATION SOLUTION (PERFOROMIST) INH SCH ×2 (07:36→19:48)
[2017-05-09] MEDS: BUDESONIDE 0.5 MG/2 ML INHALATION SUSPENSION INH SCH ×2 (07:36→19:47)
[2017-05-09] MEDS: SENOKOT S TAB PO SCH ×3 (09:00→20:20)
[2017-05-09] MEDS ORDERED: BISACODYL 10 MG SUPP PR PRN (09:00)
[2017-05-09] MEDS: predniSONE 20 MG TAB PO SCH (09:01)
[2017-05-09] MEDS: NICOTINE 21MG/24HR 1 EA TRANSDERMAL TD SCH (09:02)
[2017-05-09] MEDS: MORPHINE 30 MG TAB **MSIR PO SCH ×3 (09:02→20:21)
[2017-05-09] MEDS: FERROUS GLUCONATE 324 MG TAB PO SCH (09:02)
--- NOTE | 2017-05-09 15:14 | IPN ---
DATE: 05/09/2017 The patient is seen and examined. Denies any chest pain, pressure, or discomfort. No significant pain. Complains of dry cough. Respirations still at baseline. The patient signed a COMFORT MEASURES ONLY (COLLEGE PROFESSOR). PHYSICAL EXAMINATION: General: The patient frail in no acute distress. HEENT: Normocephalic, atraumatic. Pulmonary: Occasional expiratory wheeze. Diminished breath sounds bilateral. Abdomen soft, nontender. Positive bowel sounds. Extremities: No edema bilateral lower extremities. ASSESSMENT/PLAN: This is a 76-year-old male patient who is homeless with a past medical history of lung cancer, diagnosed 2-1/2 years ago, refused biopsy and chemo or radiation. COPD, history of GI bleed presented to the emergency room with shortness of breath. PROBLEMS: 1. Shortness of breath, multifactorial secondary to acute COPD exacerbation, versus symptomatic anemia, versus lung cancer, versus congestive heart failure. Transfused 2 units of packed red blood cells (PRBC) with improvement. CT angio negative for pulmonary embolus (PE) but shows a 7.5 cm wide suprahilar upper lobe mass likely malignancy with obstruction of right upper lobe bronchus, chronic fibroatelectatic changes with the right lower lobe and possibly fungal bulla in the cavitary lesion in the apex of the left lung. Advanced COPD refusing bronchoscopy. Currently comfort measures only. Pulmicort nebulizer treatment, formoterol and morphine. 2. Macrocytic anemia: The patient was transfused. Currently COLLEGE PROFESSOR. 3. Hypokalemia: Supplementation, currently COLLEGE PROFESSOR. 4. Leukocytosis, resolving from thrombocytosis likely reactive. 5. Lung cancer: Refused further workup or chemo. Currently COLLEGE PROFESSOR. We are awaiting hospice. 6. Chronic obstructive pulmonary disease (COPD) hypoxia. Oxygen supplementation. COLLEGE PROFESSOR. Medications as mentioned above. 7. History of gastrointestinal bleed: The patient was transfused. 8. Gastroesophageal reflux disease (GERD): Continue proton pump inhibitor (PPI). 9. Severe protein calorie malnutrition: Dietary supplement encouraged. Currently COLLEGE PROFESSOR. 10. Deep venous thrombosis prophylaxis: Sequential compression device. DISPOSITION: Pending hospice.
[2017-05-10] MEDS: IPRATROPIUM 0.5MG/ALBUTEROL 2.5MG INH SOL UD 3ML (DUONEB)(J7620) NEB SCH ×4 (00:49→20:00)
[2017-05-10] MEDS: FORMOTEROL FUMARATE 20 MCG/2 ML INHALATION SOLUTION (PERFOROMIST) INH SCH ×2 (07:09→20:04)
[2017-05-10] MEDS: BUDESONIDE 0.5 MG/2 ML INHALATION SUSPENSION INH SCH ×2 (07:09→20:04)
[2017-05-10] MEDS: FERROUS GLUCONATE 324 MG TAB PO SCH (08:34)
[2017-05-10] MEDS: predniSONE 20 MG TAB PO SCH (08:34)
[2017-05-10] MEDS: NICOTINE 21MG/24HR 1 EA TRANSDERMAL TD SCH (08:35)
[2017-05-10] MEDS: SENOKOT S TAB PO SCH ×2 (08:35→20:25)
[2017-05-10] MEDS: MORPHINE 30 MG TAB **MSIR PO SCH ×3 (08:35→20:25)
--- NOTE | 2017-05-10 14:51 | IPN ---
DATE: 05/10/2017 The patient is seen and examined. Currently comfort measures only. No acute events. Continues to have cough productive of green sputum. Denies any significant pain. Feels comfortable. PHYSICAL EXAMINATION: General: Patient is alert, comfortable. In no acute distress. HEENT: Normocephalic, atraumatic. Pulmonary: Occasional expiratory wheeze. Diminished breath sounds bilateral. Abdomen: Soft, nontender. Positive bowel sounds. Cardiac regular rate and rhythm with normal S1, S2. Extremities: No edema bilateral lower extremities. ASSESSMENT/PLAN: This is a 76-year-old male patient who is homeless, with a past medical history of lung cancer diagnosed 2-1/2 years ago. Refused biopsy, chemotherapy or radiation. Chronic obstructive pulmonary disease (COPD), history of gastrointestinal bleed (GI) who presented to the emergency room with shortness of breath. PROBLEMS: 1. Shortness of breath, multifactorial secondary to acute COPD exacerbation versus symptomatic anemia versus lung cancer, versus congestive heart failure, transfused two units packed red blood cells (PRBC) with improvement. CT angiogram negative for pulmonary embolus (PE) but shows a 7.5 cm right suprahilar upper lobe mass lesion and right superior hilar adenopathy, obstruction of right upper lobe bronchus. Chronic fibroatelectatic changes of right lower lobe and possible fungal bullae in the cavitary lesion in the apex of the left lung, advanced COPD refusing bronchoscopy. 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 Continue Pulmicort nebulizer treatment, formoterol, and morphine. 2. Macrocytic anemia: Patient was transfused. Currently BOOTS AND SHOES SUPERVISOR. 3. Hypokalemia: Supplemented. Currently BOOTS AND SHOES SUPERVISOR. 4. Leukocytosis: Resolved. 5. Thrombocytosis likely reactive. 6. Lung cancer: Refusing further workup. Currently BOOTS AND SHOES SUPERVISOR. 7. COPD hypoxia: Oxygen supplementation currently BOOTS AND SHOES SUPERVISOR. Medication as above. 8. History of gastrointestinal bleed: The patient was transfused. 9. Gastroesophageal reflux disease (GERD): Continue proton pump inhibitor (PPI). 10. Severe protein calorie malnutrition: Dietary supplementation encouraged. 11. Deep venous thrombosis prophylaxis: Sequential compression device. DISPOSITION: The patient will likely be discharged to hospice on Saturday or Saturday as per hospice exhibit display representative.
[2017-05-11] MEDS: IPRATROPIUM 0.5MG/ALBUTEROL 2.5MG INH SOL UD 3ML (DUONEB)(J7620) NEB SCH ×4 (00:31→19:47)
[2017-05-11] MEDS: BUDESONIDE 0.5 MG/2 ML INHALATION SUSPENSION INH SCH ×2 (07:35→19:47)
[2017-05-11] MEDS: FORMOTEROL FUMARATE 20 MCG/2 ML INHALATION SOLUTION (PERFOROMIST) INH SCH ×2 (07:36→19:47)
[2017-05-11] MEDS: predniSONE 20 MG TAB PO SCH (09:55)
[2017-05-11] MEDS: FERROUS GLUCONATE 324 MG TAB PO SCH (09:55)
[2017-05-11] MEDS: SENOKOT S TAB PO SCH ×2 (09:55→20:54)
[2017-05-11] MEDS: NICOTINE 21MG/24HR 1 EA TRANSDERMAL TD SCH (09:57)
[2017-05-11] MEDS: MORPHINE 30 MG TAB **MSIR PO SCH ×3 (10:07→20:55)
--- NOTE | 2017-05-11 12:42 | IPN ---
DATE: 05/11/2017 Patient seen and examined. No acute events overnight. Denies any chest pain, pressure or discomfort. Patient currently comfort measures only. No change in respiration. Alert. PHYSICAL EXAMINATION: GENERAL: Patient alert, comfortable, in no acute distress, having breakfast. HEENT: Normocephalic, atraumatic. PULMONARY: Occasional expiratory wheeze. Diminished breath sounds bilaterally. CARDIAC: Regular rate and rhythm. Normal S1, S2. ABDOMEN: Soft, nontender, positive bowel sounds. EXTREMITIES: No clubbing, cyanosis or edema. ASSESSMENT AND PLAN: This is a 76-year-old male patient with underlying medical history of homeless, past medical history of lung cancer diagnosed 2-1/2 years ago, refused biopsy, chemotherapy or radiation, chronic obstructive pulmonary disease (COPD), history of gastrointestinal (GI) bleed, presented to the emergency room with shortness of breath. Problems: 1. Shortness of breath. Multifactorial secondary to acute COPD exacerbation versus symptomatic anemia, versus lung cancer, versus congestive heart failure, transfused two units of packed red blood cells with improvement. CT angio negative for pulmonary embolism (PE), but shows a 7.5 cm right suprahilar mass lesion and right suprahilar adenopathy, obstruction of right upper lobe bronchus, chronic fibro-atelectatic changes right lower lobe and possible fungal ball in the cavitary lesion in the apex of the left lung, advanced COPD. Refusing bronchoscopy. 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 Continue Pulmicort nebulizer treatment, formoterol, morphine. 2. Macrocytic anemia. The patient was transfused. Currently COMPTOMETER OPERATOR. 3. Hypokalemia. Supplemented. Currently COMPTOMETER OPERATOR. 4. Leukocytosis, resolved. 5. Thrombocytosis, likely reactive. 6. Lung cancer. Refusing further workup. Currently COMPTOMETER OPERATOR. 7. Chronic hypoxia. Oxygen supplementation. COMPTOMETER OPERATOR. Medication as above. 8. History of gastrointestinal bleed. Patient was transfused. 9. Gastroesophageal reflux disease (GERD). Continue proton pump inhibitor (PPI). 10. Severe protein-calorie malnutrition. Dietary supplementation encouraged. 11. Deep vein thrombosis (DVT) prophylaxis. Sequential compression device. DISPOSITION: The patient will likely be discharged to hospice Saturday or Saturday, pending hospice.
[2017-05-12] MEDS: IPRATROPIUM 0.5MG/ALBUTEROL 2.5MG INH SOL UD 3ML (DUONEB)(J7620) NEB SCH ×4 (01:48→20:00)
[2017-05-12] MEDS: FORMOTEROL FUMARATE 20 MCG/2 ML INHALATION SOLUTION (PERFOROMIST) INH SCH ×2 (07:42→20:24)
[2017-05-12] MEDS: BUDESONIDE 0.5 MG/2 ML INHALATION SUSPENSION INH SCH ×2 (07:42→20:24)
[2017-05-12] MEDS: FERROUS GLUCONATE 324 MG TAB PO SCH (08:27)
[2017-05-12] MEDS: SENOKOT S TAB PO SCH ×2 (08:27→21:27)
[2017-05-12] MEDS: predniSONE 20 MG TAB PO SCH (08:27)
[2017-05-12] MEDS: NICOTINE 21MG/24HR 1 EA TRANSDERMAL TD SCH (08:28)
[2017-05-12] MEDS: MORPHINE 30 MG TAB **MSIR PO SCH ×3 (08:28→21:27)
[2017-05-12] MEDS: MOM 30ML SUSPENSION UDC PO PRN (12:14)
--- NOTE | 2017-05-12 16:56 | IPNPDOC ---
Text Note Date of Service The patient was seen on 05/12/17. NOTE Subjective: Patient is a 76 year old homeless male with a PMHx of Lung CA ( Diagnosed 2.5 years prior, refused biopsy, chemotherapy and radiation), COPD and Hx of GI bleed who presented to the ER with complaints of SOB. Patient was seen and examined at the bedside. He notes that he has constipation and has difficulty passing stool. I advised him that we will add an additional stool softener. Objective: Vitals (See below) General: Lying in bed, no acute distress, comfortable, AAOx3 HEENT: NC, AT CVS: RRR, +S1S2 Lungs: Decreased breath sounds bilaterally, no appreciable wheezing / crackles / rhonchi Abdomen: Soft, ND, NT Extremities: - Edema, - Calf tenderness Assessment and plan: Dyspnea - likely multifactorial 2/2 acute COPD, Symptomatic anemia, Lung CA, CHF - s/p transfusion of 2 unit PRBC - CTA: obstruction of RUL bronchus, fungal ball in cavitary lesion, advanced COPD - Patient refused bronchostomy - Has been made SERVICE EMPLOYEE - c/w Pulmicort nebulizer, Formoterol, pain control with morphine Macrocytic anemia Hypokalemia s/p Leukocytosis Thrombocytosis Lung CA Chronic hypoxia - on supplemental oxygen Hx of GI bleed Severe protein calorie malnutrition GERD DVT prophylaxis Code Status: - DNR / DNI - SERVICE EMPLOYEE Disposition: - Plan for hospice Saturday / Saturday VS,Fishbone, I+O VS, Fishbone, I+O Vital Signs Date Time Temp Pulse Resp B/P (MAP) Pulse Ox O2 Delivery O2 Flow Rate FiO2 05/12/17 16:23 16 05/12/17 09:00 Room Air I&O- Last 24 Hours up to 6 AM 05/13/17 06:00 Intake Total 1000 ml Output Total 250 ml Balance 750 ml SUZANNE HOWELL MD May 12, 2017 16:56
[2017-05-13] MEDS: IPRATROPIUM 0.5MG/ALBUTEROL 2.5MG INH SOL UD 3ML (DUONEB)(J7620) NEB SCH ×4 (02:00→20:00)
[2017-05-13] MEDS: FERROUS GLUCONATE 324 MG TAB PO SCH (07:39)
[2017-05-13] MEDS: SENOKOT S TAB PO SCH ×2 (07:40→21:34)
[2017-05-13] MEDS: NICOTINE 21MG/24HR 1 EA TRANSDERMAL TD SCH (07:40)
[2017-05-13] MEDS: MORPHINE 30 MG TAB **MSIR PO SCH ×3 (07:40→21:34)
[2017-05-13] MEDS: predniSONE 20 MG TAB PO SCH (07:40)
[2017-05-13] MEDS: MOM 30ML SUSPENSION UDC PO PRN (07:44)
[2017-05-13] MEDS: BUDESONIDE 0.5 MG/2 ML INHALATION SUSPENSION INH SCH ×2 (08:15→20:11)
[2017-05-13] MEDS: FORMOTEROL FUMARATE 20 MCG/2 ML INHALATION SOLUTION (PERFOROMIST) INH SCH ×2 (08:15→20:11)
--- NOTE | 2017-05-13 13:15 | IPNPDOC ---
Text Note Date of Service The patient was seen on 05/13/17. NOTE Subjective: Patient is a 76 year old homeless male with a PMHx of Lung CA ( Diagnosed 2.5 years prior, refused biopsy, chemotherapy and radiation), COPD and Hx of GI bleed who presented to the ER with complaints of SOB. Patient was seen and examined at the bedside. Notes that he had a bowel movement yesterday, but still has some complaints of constipation. 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 - c/w Pulmicort nebulizer, Formoterol, pain control with morphine Constipation - c/w Bowel care regimen Macrocytic anemia Hypokalemia s/p Leukocytosis Thrombocytosis Lung CA Chronic hypoxia - on supplemental oxygen Hx of GI bleed Severe protein calorie malnutrition GERD DVT prophylaxis Code Status: - DNR / DNI - VOICE OVER ANNOUNCER Disposition: - Plan for hospice Saturday VS,Fishbone, I+O VS, Fishbone, I+O Vital Signs Date Time Temp Pulse Resp B/P (MAP) Pulse Ox O2 Delivery O2 Flow Rate FiO2 05/13/17 08:00 Room Air 05/12/17 21:57 19 I&O- Last 24 Hours up to 6 AM 05/14/17 05:59 Intake Total 660 ml Output Total 325 ml Balance 335 ml SUZANNE HOWELL MD May 13, 2017 13:15
[2017-05-13] MEDS ORDERED: PRED20TA PO (16:27)
[2017-05-13] MEDS ORDERED: BISA10SU PR (16:27)
[2017-05-13] MEDS ORDERED: NICO21PAT TD (16:27)
[2017-05-13] MEDS ORDERED: FERR32TA PO (16:27)
[2017-05-13] MEDS ORDERED: MILKSUS PO (16:27)
[2017-05-13] MEDS ORDERED: HYOS125TA PO (16:27)
[2017-05-13] MEDS ORDERED: ONDA4TAB6 PO (16:27)
[2017-05-13] MEDS ORDERED: SENN1TAB2 PO (16:27)
[2017-05-14] MEDS: IPRATROPIUM 0.5MG/ALBUTEROL 2.5MG INH SOL UD 3ML (DUONEB)(J7620) NEB SCH ×2 (01:33→07:58)
[2017-05-14] MEDS: FORMOTEROL FUMARATE 20 MCG/2 ML INHALATION SOLUTION (PERFOROMIST) INH SCH (07:58)
[2017-05-14] MEDS: BUDESONIDE 0.5 MG/2 ML INHALATION SUSPENSION INH SCH (07:59)
[2017-05-14] MEDS ORDERED: FERR32TA PO (08:49)
[2017-05-14] MEDS ORDERED: ONDA4TAB6 PO (08:49)
[2017-05-14] MEDS ORDERED: MILKSUS PO (08:49)
[2017-05-14] MEDS ORDERED: HYOS125TA PO (08:49)
[2017-05-14] MEDS ORDERED: NICO21PAT TD (08:49)
[2017-05-14] MEDS ORDERED: SENN1TAB2 PO (08:49)
[2017-05-14] MEDS ORDERED: PRED20TA PO (08:49)
[2017-05-14] MEDS ORDERED: BISA10SU PR (08:49)
[2017-05-14] MEDS: NICOTINE 21MG/24HR 1 EA TRANSDERMAL TD SCH (09:17)
[2017-05-14] MEDS: SENOKOT S TAB PO SCH (09:18)
[2017-05-14] MEDS: MORPHINE 30 MG TAB **MSIR PO SCH (09:18)
[2017-05-14] MEDS: predniSONE 20 MG TAB PO SCH (09:18)
[2017-05-14] MEDS: FERROUS GLUCONATE 324 MG TAB PO SCH (09:18)
--- NOTE | 2017-05-14 17:14 | DSES ---
DATE OF ADMISSION: 05/02/2017 DATE OF DISCHARGE: 05/14/2017 ATTENDING PHYSICIAN: Inez Mcdermott MD, Amado Almeida DO, Haresh Hernandez MD, Merle Medrano MD PRIMARY CARE PHYSICIAN: None. CONSULTING PHYSICIAN: Long Escamilla MD CONDITION ON DISCHARGE: Guarded. FINAL DIAGNOSIS: Dyspnea likely secondary to multifactorial etiology secondary to acute chronic obstructive pulmonary disease (COPD), symptomatic anemia, lung cancer, and congestive heart failure (CHF), possibly fungal infection. PROCEDURES: None. HISTORY OF PRESENT ILLNESS: The patient is a 76-year-old male with a past medical history of lung cancer diagnosed 2-1/2 years prior, refused biopsy, chemotherapy and radiation, COPD, and history of gastrointestinal (GI) bleed who presented to the emergency room (ER) with complaints of shortness of breath. HOSPITAL COURSE: 1. Assessments include dyspnea likely secondary to multifactorial etiology secondary to acute COPD, symptomatic anemia, lung cancer, and CHF. CTA was acquired which revealed obstruction of right upper lobe bronchus, fungal ball in cavitary lesions, advanced COPD. He is status post transfusion of 2 units packed red blood cells. Patient refused bronchoscopy and has been made comfort measures only based on his requests. Patient has been continued with Pulmicort, formoterol, and pain control with morphine. 2. Constipation. Continue with bowel care regimen. 3. Macrocytic anemia. 4. Hyperkalemia. 5. Status post leukocytosis. 6. Thrombocytosis. 7. Lung cancer. 8. Chronic hypoxia and supplemental oxygen. 9. History of GI bleed. 10. Severe protein calorie malnutrition. 11. Gastroesophageal reflux disease (GERD). 12. Deep venous thrombosis (DVT) prophylaxis. DISCHARGE MEDICATIONS: Patient has been discharged home with the following medication list: - bisacodyl 10 mg per rectum twice a day as needed for constipation - ferrous gluconate 324 mg by mouth daily - hyoscyamine 0.125 mg by mouth every 4 hours as needed terminal secretions - milk of magnesium 30 mL by mouth daily as needed for constipation - nicotine patch one patch transdermally daily - Zofran 4 mg by mouth every 6 hours as needed for nausea - prednisone 20 mg by mouth daily - Senna Plus one tablet by mouth twice a day Continued medications include: - acetaminophen 325 mg by mouth every 4 hours as needed for pain - albuterol 2.5 mg inhaled four times a day - budesonide/formoterol two puffs inhaled twice a day - morphine sulfate 15 mg by mouth three times a day DISCHARGE INSTRUCTIONS: Patient has been advised to followup with his primary care provider if his pain remains uncontrolled. He has been advised to remain compliant with treatment plan and medications and to return to the emergency room if he experiences any problems. TIME SPENT ON DISCHARGE: Greater than 35 minutes.
== END 2017-05-14 10:35 | disposition hospice, inpatient (51) | DRG 180 ==
LOC: M ED 09:58 → EDBD 09:58 → M ED INP 14:20 → M PCU 22:02 → M MSPAV 05-04 16:38
PROVIDERS: ADMIT Internal Medicine; ATTEND Internal Medicine
PROC: 30233N1 Transfusion of Nonautologous Red Blood Cells into Peripheral Vein, Percutaneous Approach (ICD-10-PCS; principal; 2017-05-02)
DX: C34.11 Malignant neoplasm of upper lobe, right bronchus or lung (principal); E43 Unspecified severe protein-calorie malnutrition; J44.1 Chronic obstructive pulmonary disease with (acute) exacerbation; B49 Unspecified mycosis; Z68.1 Body mass index [BMI] 19.9 or less, adult; I50.9 Heart failure, unspecified; Z51.5 Encounter for palliative care; K59.00 Constipation, unspecified; E87.5 Hyperkalemia; K21.9 Gastro-esophageal reflux disease without esophagitis; Z79.899 Other long term (current) drug therapy; Z88.1 Allergy status to other antibiotic agents; E87.6 Hypokalemia; D72.829 Elevated white blood cell count, unspecified; D53.9 Nutritional anemia, unspecified